=== PATIENT | female | born 1965 | race Caucasian/White ===

== ENCOUNTER 2018-07-23 05:00 | Day surgery (SDC) | payer BC ==
[2018-07-22 10:01] LABS: HEMATOCRIT 40.1 % (36.0-48.0); HEMOGLOBIN 13.7 g/dL (12-16); MCH 32.5 pg (26.0-34.0); MCHC 34.2 g/dL (31.0-37.0); MCV 95.2 fL (80.0-100.0); MEAN PLATELET VOLUME 9.8 fL (7.4-10.4); RBC 4.21 10x6/uL (4.00-5.40); RDW 12.4 % (11.5-14.5); WBC 5.2 10x3/uL (4.8-10.8)
[~2018-07-23] VITALS: Ht 177.8 cm; Wt 56.7 kg
--- NOTE | ~2018-07-23 | OP ---
PATIENT NAME: TAVIA MAYFIELD MEDICAL RECORD: [id number] :67 LOCATION:[facility] ADMISSION DATE: SURGEON: ISSA BOLANOS DO DATE OF OPERATION: 07/23/2018 PROCEDURE PERFORMED: Left shoulder arthroscopy with subacromial decompression, distal clavicle excision, labral debridement, biceps tenodesis. PREOPERATIVE DIAGNOSES: Left shoulder subacromial impingement, AC joint arthritis, type 2 SLAP tear. POSTOPERATIVE DIAGNOSES: Left shoulder subacromial impingement, AC joint arthritis, type 2 SLAP tear. INDICATIONS: Ms. Mayfield is a 53-year-old female presented to my office having left shoulder pain for quite some time. She has had an MRI without contrast that did show a possible SLAP tear. It could not be determined due to no contrast in the joint; however, she did have a positive Satsuma's test and Hawkin's. She said that she could not use the shoulder without pain, any lifting or anything cause pain in the joint. With those positive findings on exam and she also had noted AC joint arthritis on x-ray and MRI, I told her that we could scope her shoulder and do a biceps tenodesis, also look at the rotator cuff to ensure it did not have any tears and even partial tears. She was okay with that and understood the risks and benefits of the procedure including infection, bleeding, damage to nerves and vessels, loss of motion and need for further surgery, and she consented to the procedure. SURGEON: Issa Bolanos DO STRING WINDING MACHINE OPERATOR: Keon Robins, advanced nurse practitioner, which assisted with closing the wounds during the case as well as passing the instruments. DESCRIPTION OF PROCEDURE: Once the patient received the block, was taken to the operative suite, laid in the right lateral decubitus position. She was given Ancef preoperatively. The left shoulder was prepped and draped in sterile fashion. Timeout was performed, everyone was in agreement as to the correct side, site, patient, and procedure. The procedure then began by inserting a spinal needle from the posterior aspect into the shoulder joint itself and insufflating the joint with 60 mL of normal saline. The portal was then established with an 11-blade scalpel and the trocar was entered into the joint. Once entered into the joint, the joint was inspected. There was a type 2 SLAP tear noted in the joint. Also, the rotator cuff, supraspinatus, infraspinatus were inspected and no tears were seen on the articular side. The subscapularis was also intact. No fraying was seen on that. The anterior portal was then established with an 18-gauge spinal needle and 11-blade scalpel. Trocar was then entered in and a burner was brought into the shoulder. The tenotomy of the biceps was done at that time and also the labral debridement. The frayed labrum was debrided back to a stable position. The trocar was then taken out of the joint and put in the subacromial space. Lateral portal was then established with an 18-gauge spinal needle and trocar and then a burner was brought in. Subacromial decompression was done at that time. There was noted quite an inflamed bursa on top of the rotator cuff, a subacromial bursa was quite inflamed. Also, the acromion was noted to have a big spur on it and the AC joint was essentially fused together. There was minimal motion between the distal clavicle and the acromion. At that time, the distal clavicle excision OPERATIVE REPORT [id number] TAVIA MAYFIELD was done and opened it up to approximately 7 mm and had good movement at that time. The acromioplasty was also done with removing the spur on the acromion and the bursectomy was done on the subacromial bursa getting a good view at that time after the bursectomy of the rotator cuff on the bursal side and no tears were seen in the rotator cuff after good inspection. This was then withdrawn and the incision began for the biceps tenodesis part on the anterior humerus. Careful dissection was made down to the subpectoral region of the left arm and the biceps tendon was encountered and pulled out through the wound and whipstitched and then a button was placed on the suture and a drill was used to drill a unicortical hole in the humerus. The button was then placed in the hole and the biceps tendon was cinched down and tied and then a free needle was used to tack through the bicep tendon and then tied on top of that securing it into place. Once that was complete, the excess tendon and suture was cut and the site was thoroughly irrigated and the skin was closed with 2-0 Vicryl in inverted interrupted fashion, 4-0 Monocryl ran the skin and then Dermabond placed on the skin. The portal sites, the anterior, lateral and posterior portal sites were closed with 4-0 Monocryl in inverted interrupted fashion and Dermabond placed on them and then a Telfa and Tegaderm were placed on each of the sites. The patient was awakened and taken to recovery in stable condition. Blood loss was minimal. COMPLICATIONS: None. TRANSINT:[id number] Voice Confirmation ID: [id number] DOCUMENT ID: [id number] ISSA BOLANOS DO at 1133 CC: [id number] DICTATION DATE: 07/23/18 0831 DATA ANALYTICS ANALYST: 07/23/18 1052 [facility] 07/23/18 [id number] [place] [id number]
[~2018-07-23 05:00] MED LIST: ALEVE220 MG PO; FISH OIL 1,0001 CA1 PO; MULTI-DAY VITAM1 TAB PO
[2018-07-23 06:04] VITALS: BP 88/49; Ht 177.8 cm; Wt 56.7 kg
[2018-07-23 06:23] LABS: HCG URINE NEGATIVE (NEGATIVE)
[2018-07-23] MEDS ORDERED: VISTARIL50 MG PO (08:24)
[2018-07-23] MEDS ORDERED: PERCOCET 7.5/321 TAB PO (08:24)
== END 2018-07-23 10:30 | disposition home or self-care (01) ==
LOC: D.OPS 05:00 → D.PAN 07:30 → D.OPS 10:30
PROVIDERS: Anesthesiology; Orthopaedic Surgery
DX: M75.42 Impingement syndrome of left shoulder (principal); M13.812 Other specified arthritis, left shoulder; S43.432A Superior glenoid labrum lesion of left shoulder, initial encounter; X58.XXXA Exposure to other specified factors, initial encounter; Z01.812 Encounter for preprocedural laboratory examination